=== PATIENT | female | born 1975 | race Hispanic/Latino ===

== ENCOUNTER 2018-11-20 16:48 | Emergency (ER) | payer OTHER ==
[2018-11-20] MEDS ORDERED: LIDOCAINE 1% W/EPI 1:100,000 MDV 20 ML VIAL ONE (17:25)
[2018-11-20] MEDS ORDERED: TETANUS & DIPHTHERIA TOX,ADULT 0.5 ML VIAL ONE (17:28)
--- NOTE | 2018-11-20 18:16 | RAD REPORT ---
EXAM DESCRIPTION: RAD - Ankle Left 3 View - 11/20/2018 5:40 pm CLINICAL HISTORY: Left ankle pain, twisting injury COMPARISON: None. FINDINGS: Transverse fracture of the distal fibula is present. No distraction or angulation deformit y. No medial malleolus or posterior malleolus fracture seen. There is significant lateral soft tissue swelling. Ankle mortise is normally maintained. Base of the fifth metatarsal is intact. No joint eff usion seen. No soft tissue abnormality. Small plantar spur. IMPRESSION: Transverse fracture of the distal left fibula without significant distraction or angulat ion.
--- NOTE | 2018-11-20 18:48 | ER ---
Nurse's Notes [facility] Name: Gwen Ross Age: 42 yrs Sex: Female : 1975 Arrival Date: 11/20/2018 Time: 16:49 Bed 8 Private MD: Diagnosis: Fall due to bumping against object;Laceration without foreign body of other part of head-forehead;Sprain of ankle;Nondisplaced fracture of lateral malleolus of left fibula Presentation: 11/20 16:57 Presenting complaint: Patient states: missed the last step and had a head injury onto sv concrete, denies LOC. laceration to forehead, left ankle pain, nausea. Care prior to arrival: 4x4 gauze. Mechanism of Injury: Fall down 1 steps. 16:57 Acuity: GREYSON 3 sv 16:57 Method Of Arrival: Wheelchair sv 16:57 Transition of care: patient was not received from another setting of care. Onset of hj symptoms was November 20, 2018. Risk Assessment: Do you want to hurt yourself or someone else? Patient reports no desire to harm self or others. Initial Sepsis Screen: Does the patient meet any 2 criteria? No. Patient's initial sepsis screen is negative. Does the patient have a suspected source of infection? No. Patient's initial sepsis screen is negative. 17:08 Trauma event details: Injury occurred in the [facility], Injury occurred: at home. Injury occurred: November 20, 2018. Triage Assessment: 17:07 General: Appears in no apparent distress. uncomfortable, Behavior is calm, cooperative, hj appropriate for age. Pain: Complains of pain in face. 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 - Social history:: Smoking status: Patient/guardian denies using tobacco, Patient/guardian denies using alcohol. - Immunization history: Last tetanus immunization: unknown. - Ebola Screening: : Patient denies travel to an Ebola-affected area in the 21 days before illness onset. - Family history:: not pertinent. Screenin:05 Abuse screen: Denies threats or abuse. Denies injuries from another. Nutritional hj screening: No deficits noted. Tuberculosis screening: No symptoms or risk factors identified. Fall Risk Fall in past 12 months (25 points). Primary Survey: 17:00 NO uncontrolled hemorrhage observed. A: The patient is alert. Airway: patent, No hj supplemental oxygen in use on arrival. Oral cavity: clear, gag reflex present, Trachea midline. Breathing/Chest: Respiratory pattern: regular, Respiratory effort: spontaneous, unlabored, Breath sounds: clear, Chest inspection:. Circulation: Cardiac rhythm: sinus rhythm Heart tones present. Pulses: palpable . Skin color: pink, Skin temperature: warm, dry. Disability Alert. Exposure/Environment: All clothing and personal items were removed. Forensic evidence collection is not deemed to be indicated at this time. Items placed in patient belonging bag. There is no evidence of uncontrolled external bleeding. Obvious injury(ies) are noted at this time: laceration forehead. 17:00 Reassessment Airway Airway Patent Oxygen No O2 Oral cavity Clear +Gag reflex Trachea hj Midline Breathing/Chest Respiratory pattern Regular Respiratory effort Spontaneous Unlabored Breath sounds Clear Chest inspection Symmetrical Circulation Heart rhythm Sinus rhythm Heart tones Present Pulses Palpable Color [place] Temperature Warm Dry Disability Alert. Secondary Survey: 17:08 HEENT: Head Other laceration Face No injury/deformity Eyes: No injury or deformity hj noted. Ears: clear Nose: clear. Gastrointestinal: Abdomen is soft, Bowel sounds present in all quadrants. Palpation No deficit noted. : No signs and/or symptoms were reported regarding the genitourinary system. Musculoskeletal: Reports. Assessment: 17:09 General: Appears in no apparent distress. uncomfortable, Behavior is calm, cooperative, hj appropriate for age. Pain: Complains of pain in head. Neuro: Level of Consciousness is awake, alert, obeys commands, Oriented to person, place, time, situation, Appropriate for age. EENT: No signs and/or symptoms were reported regarding the EENT system. Cardiovascular: Capillary refill < 3 seconds Patient's skin is warm and dry. Respiratory: Airway is patent Respiratory effort is even, unlabored, Respiratory pattern is regular, symmetrical. GI: No signs and/or symptoms were reported involving the gastrointestinal system. : No signs and/or symptoms were reported regarding the genitourinary system. Derm: No signs and/or symptoms reported regarding the dermatologic system. Musculoskeletal: No signs and/or symptoms reported regarding the musculoskeletal system. 17:19 Reassessment: ice pack applied to L ankle;. hj 18:33 Reassessment: Patient and/or family updated on plan of care and expected duration. Pain hj level reassessed. Patient is alert, oriented x 3, equal unlabored respirations, skin warm/dry/pink. Md in room for lac repair; walking boot provided per order;. Vital Signs: 16:58 Weight 135.17 kg; Height 5 ft. 5 in. (165.10 cm); Pain 8/10; sv 17:00 BP 141 / 83; Pulse 106; Resp 20; Temp 97.9; Pulse Ox 96% on R/A; em1 18:33 BP 120 / 74; Pulse 85; Resp 18; Pulse Ox 100% on R/A; hj 16:58 Body Mass Index 49.59 (135.17 kg, 165.10 cm) sv [place] Coma Score: 17:07 Eye Response: spontaneous(4). Verbal Response: oriented(5). Motor Response: obeys hj commands(6). Total: 15. Trauma Score (Adult): 17:07 Eye Response: spontaneous(1); Verbal Response: oriented(1); Motor Response: obeys hj commands(2); Systolic BP: > 89 mm Hg(4); Respiratory Rate: 10 to 29 per min(4); [place] Score: 15; Trauma Score: 12 ED Course: 16:49 Patient arrived in ED. as 16:53 Zoltan Chun, FUNMILAYO is Primary Nurse. hj 16:55 Zac Dickson MD is Attending Physician. [facility] 16:58 Triage completed. sv 16:58 Thermoregulation: warm blanket given to patient. hj 17:07 Arm band placed on right wrist. hj 17:08 Patient has correct armband on for positive identification. Bed in low position. Call hj light in reach. Side rails up X 1. 17:08 Patient maintains SpO2 saturation greater than 95% on room air. hj 17:41 Ankle Left 3 View XRAY In Process Unspecified. EDMS 18:46 Polo Barcenas MD is Referral Physician. [facility] 18:51 No provider procedures requiring assistance completed. Patient did not have IV access hj during this emergency room visit. Administered Medications: 17:24 Drug: Lidocaine-Epinephrine -1%: (1:100,000) 5 ml Volume: 20 ml; Route: Infiltration; hj 17:25 Drug: Tetanus-Diphtheria Toxoid Adult 0.5 ml {[employer] Hand: [employer]. Exp: 08/01/2020. Lot #: [id number]. } Route: IM; Site: right deltoid; 17:31 Follow up: Response: No adverse reaction hj Intake: 18:52 PO: 0ml; Total: 0ml. hj Output: 18:52 Urine: 0ml; Total: 0ml. hj Outcome: 18:46 Discharge ordered by . [facility] 18:51 Discharged to home ambulatory, via wheelchair, with crutches, with family. 18:51 Condition: stable 18:51 Discharge instructions given to patient, family, Instructed on discharge instructions, follow up and referral plans. medication usage, crutch walking, Demonstrated understanding of instructions, follow-up care, medications, crutch walking, Prescriptions given X 3. 18:52 Patient's length of stay was not longer than 2 hours. 18:52 Patient left the ED. Signatures: Dispatcher [employer] EDMS Tona Lujan, Zac Davis RN, MD MD cha Martinez, Amelia as Martinez, Eric em1 Zoltan Chun RN RN
--- NOTE | 2018-11-20 18:50 | EDPHYS ---
Physician Documentation [facility] Name: Gwen Ross Age: 42 yrs Sex: Female : 1975 Arrival Date: 11/20/2018 Time: 16:49 Bed 8 Private MD: ED Physician Zac Dickson HPI: 11/20 17:24 This 42 yrs old Female presents to ER via Wheelchair with complaints of Fall tio Injury. 17:24 Details of fall: The patient fell from an upright position, while walking. Onset: The tio symptoms/episode began/occurred just prior to arrival. Associated injuries: The patient sustained injury to the head, left lateral ankle, decreased range of motion, painful injury, swelling. Severity of symptoms: At their worst the symptoms were mild, in the emergency department the symptoms are unchanged. 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 - Social history:: Smoking status: Patient/guardian denies using tobacco, Patient/guardian denies using alcohol. - Immunization history: Last tetanus immunization: unknown. - Ebola Screening: : Patient denies travel to an Ebola-affected area in the 21 days before illness onset. - Family history:: not pertinent. ROS: 17:24 Constitutional: Negative for fever, chills, and weight loss, Eyes: Negative for injury, tio pain, redness, and discharge, ENT: Negative for injury, pain, and discharge, Neck: Negative for injury, pain, and swelling, Cardiovascular: Negative for chest pain, palpitations, and edema, Respiratory: Negative for shortness of breath, cough, wheezing, and pleuritic chest pain, Abdomen/GI: Negative for abdominal pain, nausea, vomiting, diarrhea, and constipation, Back: Negative for injury and pain, : Negative for injury, bleeding, discharge, and swelling, Skin: Negative for injury, rash, and discoloration, Neuro: Negative for headache, weakness, numbness, tingling, and seizure, Psych: Negative for depression, anxiety, suicide ideation, homicidal ideation, and hallucinations, Allergy/Immunology: Negative for hives, rash, and allergies, Endocrine: Negative for neck swelling, polydipsia, polyuria, polyphagia, and marked weight changes, Hematologic/Lymphatic: Negative for swollen nodes, abnormal bleeding, and unusual bruising. 17:24 MS/extremity: Positive for decreased range of motion, pain, swelling, tenderness, of the left lateral ankle. Exam: 17:24 Constitutional: This is a well developed, well nourished patient who is awake, alert, tio and in no acute distress. Eyes: Pupils equal round and reactive to light, extra-ocular motions intact. Lids and lashes normal. Conjunctiva and sclera are non-icteric and not injected. Cornea within normal limits. Periorbital areas with no swelling, redness, or edema. ENT: Nares patent. No nasal discharge, no septal abnormalities noted. Tympanic membranes are normal and external auditory canals are clear. Oropharynx with no redness, swelling, or masses, exudates, or evidence of obstruction, uvula midline. Mucous membranes moist. Neck: Trachea midline, no thyromegaly or masses palpated, and no cervical lymphadenopathy. Supple, full range of motion without nuchal rigidity, or vertebral point tenderness. No Meningismus. Chest/axilla: Normal chest wall appearance and motion. Nontender with no deformity. No lesions are appreciated. Cardiovascular: Regular rate and rhythm with a normal S1 and S2. No gallops, murmurs, or rubs. Normal PMI, no JVD. No pulse deficits. Respiratory: Lungs have equal breath sounds bilaterally, clear to auscultation and percussion. No rales, rhonchi or wheezes noted. No increased work of breathing, no retractions or nasal flaring. Abdomen/GI: Soft, non-tender, with normal bowel sounds. No distension or tympany. No guarding or rebound. No evidence of tenderness throughout. Back: No spinal tenderness. No costovertebral tenderness. Full range of motion. MS/ Extremity: Pulses equal, no cyanosis. Neurovascular intact. Full, normal range of motion. Neuro: Awake and alert, GCS 15, oriented to person, place, time, and situation. Cranial nerves II-XII grossly intact. Motor strength 5/5 in all extremities. Sensory grossly intact. Cerebellar exam normal. Normal gait. Psych: Awake, alert, with orientation to person, place and time. Behavior, mood, and affect are within normal limits. 17:24 Head/face: Noted is a laceration(s), that is superficial, 3 cm(s). 17:24 Musculoskeletal/extremity: Extremities: decreased ROM, pain, swelling, tenderness, ROM: limited active range of motion, limited passive range of motion, Circulation is intact in all extremities. Sensation intact. Compartment Syndrome exam of affected extremity: is normal. DVT Exam: negative Homans' sign noted on exam, no appreciated bluish discoloration, no erythema, no increased warmth, pain, swelling, tenderness. Vital Signs: 16:58 Weight 135.17 kg; Height 5 ft. 5 in. (165.10 cm); Pain 8/10; sv 17:00 BP 141 / 83; Pulse 106; Resp 20; Temp 97.9; Pulse Ox 96% on R/A; em1 18:33 BP 120 / 74; Pulse 85; Resp 18; Pulse Ox 100% on R/A; hj 16:58 Body Mass Index 49.59 (135.17 kg, 165.10 cm) sv [place] Coma Score: 17:07 Eye Response: spontaneous(4). Verbal Response: oriented(5). Motor Response: obeys hj commands(6). Total: 15. Trauma Score (Adult): 17:07 Eye Response: spontaneous(1); Verbal Response: oriented(1); Motor Response: obeys hj commands(2); Systolic BP: > 89 mm Hg(4); Respiratory Rate: 10 to 29 per min(4); [place] Score: 15; Trauma Score: 12 MDM: 16:55 Patient medically screened. [facility] 17:27 Data reviewed: vital signs, nurses notes, lab test result(s), radiologic studies, plain tio films. 11/20 17:23 Order name: Ankle Left 3 View XRAY [facility] 11/20 17:23 Order name: Prolene, Sutures; Complete Time: 17:[address] [facility] 11/20 17:23 Order name: Dressing - Wound; Complete Time: 17:[address] [facility] 11/20 17:23 Order name: Gloves, Sterile; Complete Time: 17:[address] [facility] 11/20 17:23 Order name: Setup Suture Tray; Complete Time: 17:[address] [facility] 11/20 17:23 Order name: Ice pack; Complete Time: 17:[address] [facility] 11/20 17:27 Order name: Walking boot; Complete Time: 18:[address] [facility] Administered Medications: 17:24 Drug: Lidocaine-Epinephrine -1%: (1:100,000) 5 ml Volume: 20 ml; Route: Infiltration; 17:25 Drug: Tetanus-Diphtheria Toxoid Adult 0.5 ml {Addiction Social Worker: [employer]. Exp: 08/01/2020. Lot #: [id number]. } Route: IM; Site: right deltoid; 17:31 Follow up: Response: No adverse reaction Disposition: 11/20/18 18:46 Discharged to Home. Impression: Fall due to bumping against object, Laceration without foreign body of other part of head - forehead, Sprain of ankle, Nondisplaced fracture of lateral malleolus of left fibula. - Condition is Stable. - Discharge Instructions: Ankle Sprain, Undisplaced Fibular Ankle Fracture Treated With Immobilization, Adult, Head Injury, Adult, Facial Laceration, Facial Laceration, [id number], Head Injury, Adult, [id number]. - Prescriptions for Ibuprofen 600 mg Oral Tablet - take 1 tablet by ORAL route every 8 hours As needed take with food; 21 tablet. Keflex 500 mg Oral Capsule - take 1 capsule by ORAL route every 6 hours for 7 days; 28 capsule. Tylenol- Codeine #3 300-30 mg Oral Tablet - take 2 tablet by ORAL route every 6 hours As needed; 30 tablet. - Medication Reconciliation Form, Thank You Letter, Antibiotic Education, Prescription Opioid Use form. - Follow up: Private Physician; When: 2 - 3 days; Reason: Recheck today's complaints, Continuance of care, Re-evaluation by your physician. Follow up: Dr. Polo Barcenas; When: 2 - 3 days; Reason: Recheck today's complaints, Re-evaluation by your physician. - Problem is new. - Symptoms have improved. Signatures: Dispatcher [employer] EDTona Smith RN RN sv Anderson, Corey, MD MD cha Joaquin, Henry, RN RN hj Corrections: (The following items were deleted from the chart) 18:52 18:46 11/20/2018 18:46 Discharged to Home. Impression: Fall due to bumping against object; Laceration without foreign body of other part of head - forehead; Sprain of ankle; Nondisplaced fracture of lateral malleolus of left fibula. Condition is Stable. Discharge Instructions: Ankle Sprain, Head Injury, Adult, Facial Laceration, Facial Laceration, [id number], Head Injury, Adult, [id number], Undisplaced Fibular Ankle Fracture Treated With Immobilization, Adult. Prescriptions for Ibuprofen 600 mg Oral Tablet - take 1 tablet by ORAL route every 8 hours As needed take with food; 21 tablet, Keflex 500 mg Oral Capsule - take 1 capsule by ORAL route every 6 hours for 7 days; 28 capsule, Tylenol-Codeine #3 300-30 mg Oral Tablet - take 2 tablet by ORAL route every 6 hours As needed; 30 tablet. and Forms are Medication Reconciliation Form, Thank You Letter, Antibiotic Education, Prescription Opioid Use. Follow up: Private Physician; When: 2 - 3 days; Reason: Recheck today's complaints, Continuance of care, Re-evaluation by your physician. Follow up: Dr. Polo Barcenas; When: 2 - 3 days; Reason: Recheck today's complaints, Re-evaluation by your physician. Problem is new. Symptoms have improved. tio
== END 2018-11-20 18:52 | disposition home or self-care (01) ==
LOC: ER 16:48
PROC: 0JQ10ZZ Repair Face Subcutaneous Tissue and Fascia, Open Approach (ICD-10-PCS; principal; 2018-11-20)
DX: S01.81XA Laceration without foreign body of other part of head, initial encounter (principal); S82.65XA Nondisplaced fracture of lateral malleolus of left fibula, initial encounter for closed fracture; S93.402A Sprain of unspecified ligament of left ankle, initial encounter; W19.XXXA Unspecified fall, initial encounter; Y93.01 Activity, walking, marching and hiking; Y92.9 Unspecified place or not applicable; Z23 Encounter for immunization
CPT/HCPCS: 90471; 90714; 99284